=== PATIENT | male | born 1985 | race Caucasian/White ===

== ENCOUNTER 2018-09-07 17:13 | Emergency (ER) | payer OTHER ==
[~2018-09-07] VITALS: Ht 170.2 cm; Wt 102.3 kg
[2018-09-07 17:16] VITALS: Ht 170.2 cm; Wt 102.3 kg
[2018-09-07] MEDS ORDERED: CLINDAMYCIN 600 MG/D5W (PMX) 50 ML IVPB SCH (18:30)
[2018-09-07] MEDS ORDERED: AMPICILLIN/SULB 3 GM/NS (PMX) 100 ML IVPB ONE (18:30)
[2018-09-07] MEDS ORDERED: SOD CHLORIDE 0.9% 1,000 ML IV ONE (18:30)
[2018-09-07] MEDS ORDERED: HYDROCODONE/APAP (5/325) TAB PO ONE (20:00)
[2018-09-07] MEDS ORDERED: AMOX1TAB10 PO (20:26)
[2018-09-07] MEDS ORDERED: IBUP-1542 PO (20:28)
[2018-09-07] MEDS ORDERED: HYDR-4011 PO (20:28)
[2018-09-07] MEDS ORDERED: SULF1TAB31 PO (20:29)
--- NOTE | 2018-09-07 20:33 | ERD ---
ER Documentation Chief Complaint Chief Complaint left facial swelling x 3 days, sent from clinic ROS All systems reviewed and are negative except as per history of present illness. Medications Home Meds Active Scripts Sulfamethoxazole/Trimethoprim* (Bactrim Ds* Tablet) 1 Each Tablet, 1 TAB PO BID for cellulitis for 7 Days, #14 TAB Prov:BILLY LAW DO 09/07/18 Ibuprofen* (Motrin*) 600 Mg Tab, 600 MG PO Q6H PRN for PAIN, #30 TAB Prov:BILLY LAW DO 09/07/18 Hydrocodone/Acetaminophen (Neal 5-325 Tablet) 1 Each Tablet, 1 EACH PO Q6H PRN for PAIN, #10 TAB Prov:BILLY LAW DO 09/07/18 Amoxicillin/Potassium Clav (Amox-Clav 875-125 mg Tablet) 875-125 mg Tab, 1 TAB PO BID for oral infection for 7 Days, #14 TAB Prov:BILLY LAW DO 09/07/18 PMhx/Soc Hx Alcohol Use: No Hx Substance Use: No Hx Tobacco Use: No Smoking Status: Never smoker Physical Exam Vitals Vital Signs Date Temp Pulse Resp B/P (MAP) Pulse Ox O2 O2 Flow FiO2 Time Delivery Rate 09/07/18 98.3 86 18 146/94 96 17:16 (111) Physical Exam Const: No acute distress Head: Atraumatic Eyes: Normal Conjunctiva ENT: Normal External Ears, Nose and Mouth. Neck: Full range of motion. No meningismus. Resp: Clear to auscultation bilaterally Cardio: Regular rate and rhythm, no murmurs Abd: Soft, non tender, non distended. Normal bowel sounds Skin: No petechiae or rashes Back: No midline or flank tenderness Ext: No cyanosis, or edema Neur: Awake and alert Psych: Normal Mood and Affect Results 24 hrs Current Medications Medications Dose Sig/Sander Start Time Status Last (Trade) Ordered Route PRN Stop Time Admin Dose Reason Admin Ampicillin 100 ml @ ONCE ONCE 09/07/18 DC 09/07/18 Sodium/ 100 mls/hr IVPB 18:30 19:27 Sulbactam 09/07/18 19:29 Sodium Clindamycin 50 ml @ 50 ONCE IVPB 09/07/18 DC 09/07/18 HCl/ mls/hr 18:30 18:43 Dextrose 09/07/18 19:29 Sodium 1,000 ml @ Q1H ONCE 09/07/18 DC 09/07/18 Chloride 1,000 mls/hr IV 18:30 18:42 09/07/18 19:29 1 tab ONCE ONCE 09/07/18 DC 09/07/18 Acetaminophen PO 20:00 19:36 / 09/07/18 20:01 Hydrocodone Bitart (Neal (5/325)) Departure Diagnosis: Primary Impression: Cellulitis Site of cellulitis: unspecified site Qualified Codes: L03.90 - Cellulitis, unspecified Condition: Fair Patient Instructions: Cellulitis, Facial Referrals: ON LICENSE OF [facility] YOU HAVE RECEIVED A MEDICAL SCREENING EXAM AND THE RESULTS INDICATE THAT YOU DO NOT HAVE A CONDITION THAT REQUIRES URGENT TREATMENT IN THE EMERGENCY DEPARTMENT. FURTHER EVALUATION AND TREATMENT OF YOUR CONDITION CAN WAIT UNTIL YOU ARE SEEN IN YOUR DOCTORS OFFICE WITHIN THE NEXT 1-2 DAYS. IT IS YOUR RESPONSIBILITY TO M ESCOBAR AN APPOINTMENT FOR FOLOW-UP CARE. IF YOU HAVE A PRIMARY DOCTOR --you should call your primary doctor and schedule an appointment IF YOU DO NOT HAVE A PRIMARY DOCTOR YOU CAN CALL OUR PHYSICIAN REFERRAL HOTLINE AT IF YOU CAN NOT AFFORD TO SEE A PHYSICIAN YOU CAN CHOSE FROM THE FOLLOWING [facility] [address] [facility]. [facility] [address] [facility] [address] [facility] [facility] [address] [facility]. [facility] [address] [facility]. [facility]. [address] Additional Instructions: Call your primary care doctor TOMORROW for an appointment during the next 1-2 days.See the doctor sooner or return here if your condition worsens before your appointment time. Follow up with ENT specialist, get referral from PCP if swelling does not improve. BILLY LAW DO Sep 07, 2018 20:33
[2018-09-07 20:54] VITALS: BP 131/78; PULSE 85; RESP 16
== END 2018-09-07 20:54 | disposition home or self-care (01) ==
LOC: FTE 17:13
DX: L03.211 Cellulitis of face (principal)
CPT/HCPCS: 96374; 96375; 99284; J0295; J7030